=== PATIENT | female | born 1980 | race Caucasian/White ===

== ENCOUNTER 2020-04-09 02:35 | Inpatient (IN) | payer BC ==
[~2020-04-09 02:35] MED LIST: ELECTROLYTE-148 SOLN 500 ML IV ONE
[2020-04-09] MEDS ORDERED: ELECTROLYTE-148 SOLN 500 ML IV ONE (03:35)
[2020-04-09] MEDS ORDERED: BUTORPHANOL TARTRATE 2 MG/ML VIAL ONE (03:45)
[2020-04-09] MEDS ORDERED: PROMETHAZINE HCL 25 MG/1 ML VIAL ONE (03:45)
[2020-04-09 03:48] LABS: BASO % 0.7 % (0-2.0); EOS % 0.4 % (0-4.5); HEMATOCRIT 37.1 % (32.4-45.2); HEMOGLOBIN 12.5 GM/dL (10.7-15.3); LYMPH % 14.6 % (8-40); MCH 32.2 pg (25.7-33.7); MCHC 33.7 g/dl (32.0-36.0); MEAN CELL VOLUME 95.5 fl (80-96); MEAN PLT VOLUME 8.5 fl (7.5-11.1); MONO % 8.3 % (3.8-10.2); PLATELET COUNT 176 K/MM3 (134-434); RBC 3.89 M/mm3 (3.60-5.2); RDW 14.8 % (11.6-15.6); WHITE BLOOD COUNT 10.3 K/mm3 (4.0-10.0)
[2020-04-09] MEDS ORDERED: BUTORPHANOL TARTRATE 1 MG/ML VIAL IVPB ONE (03:50)
[2020-04-09] MEDS ORDERED: PROMETHAZINE HCL 25 MG/1 ML VIAL IVPB ONE (03:50)
[2020-04-09 03:57] LABS: INR 0.89 (0.83-1.09); PROTHROMBIN TIME (PATIENT) 10.5 SEC (9.7-13.0)
[2020-04-09 04:00] LABS: ACTIVATED PTT 28.3 SECONDS (25.2-36.5)
[2020-04-09 04:09] VITALS: BMI 31.6
[2020-04-09 04:28] LABS: BLOOD UREA NITROGEN 10.9 mg/dL (7-18); CALCIUM 8.9 mg/dL (8.5-10.1); CREATININE 0.7 mg/dL (0.55-1.3); POTASSIUM 3.9 mmol/L (3.5-5.1)
[2020-04-09] MEDS ORDERED: ELECTROLYTE-148 SOLN 1,000 ML IV SCH (05:35)
[2020-04-09] MEDS: CEPHALEXIN MONOHYDRATE 500 MG CAPSULE (UD) PO SCH ×4 (06:00→23:15)
[2020-04-09] MEDS ORDERED: PCA PUMP NR ONE ×3 (06:14→14:57)
[2020-04-09] MEDS ORDERED: FENTANYL/BUPIVACAINE/NS/PF - PCEA - 50 ML DISP.SYRIN EP ONE ×3 (06:14→14:57)
[2020-04-09] MEDS ORDERED: BUPIVACAINE HCL/PF 0.25% (2.5MG/ML) 10 ML VIAL ONE ×2 (06:22→13:33)
[2020-04-09] MEDS ORDERED: NALOXONE HCL 0.4 MG/ML VIAL IVPUSH PRN (06:43)
[2020-04-09] MEDS ORDERED: FENTANYL/BUPIVACAINE/NS/PF - PCEA - 50 ML DISP.SYRIN EP SCH ×2 (06:45→07:11)
--- NOTE | 2020-04-09 07:42 | HP ---
Past Medical History - Primary Care Physician PCP:: Mya Laura - Admission Chief Complaint: 40yo P1 @ 40wks with painful contructions and bloody discharge, no LOF, +FM History of Present Illness: 1. AMA - normal Materni 21 - 46XY 2. Fibroids 3. GBS neg - Past Medical History Pulmonary: Yes: Asthma ...: 3 ...Para: 1 ...Term: 1 ...: 0 ...Spon : 0 ...Induced : 0 ...Living Children: 1 ( 2012 7.9lb) ...Multiple Gestation: 0 ...LMP: 06/23/19 ...EDC by Dates: 03/29/20 ...EDC by Sono: 04/09/20 - Past Surgical History Past Surgical History: Yes: None Hx Myomectomy: No Hx Transabdominal Cerclage: No - Smoking History Smoking history: Never smoked Have you smoked in the past 12 months: No Aproximately how many cigarettes per day: 0 - Alcohol/Substance Use Hx Alcohol Use: No History of Substance Use: reports: None - Social History History of Recent Travel: No Home Medications - Allergies Allergies/Adverse Reactions: Allergies Allergy/AdvReac Type Severity Reaction Status Date / Time acetaminophen Allergy Severe Difficulty Verified 04/09/20 03:14 Breathing tramadol Allergy Intermediate Nausea Verified 04/09/20 03:15 seafood Allergy Severe Swelling Uncoded 04/09/20 03:15 - Home Medications Home Medications: Ambulatory Orders Pnv No.95/Ferrous Fum/Folic AC [ Formula] 1 each PO DAILY 04/04/20 Cephalexin Monohydrate [Keflex -] 500 mg PO Q6H 5 Days #20 capsule 04/05/20 Review of Systems - Review of Systems Constitutional: reports: No Symptoms Eyes: reports: No Symptoms HENT: reports: No Symptoms Neck: reports: No Symptoms Cardiovascular: reports: No Symptoms Respiratory: reports: No Symptoms Gastrointestinal: reports: No Symptoms Genitourinary: reports: Other (labor contructions) Breasts: reports: No Symptoms Reported Musculoskeletal: reports: No Symptoms Integumentary: reports: No Symptoms Neurological: reports: No Symptoms Endocrine: reports: No Symptoms Hematology/Lymphatic: reports: No Symptoms Psychiatric: reports: No Symptoms Physical Exam - Maternity Vital Signs: Vital Signs Temperature 97.9 F 04/09/20 03:00 Pulse Rate 73 04/09/20 07:20 Respiratory Rate 20 04/09/20 07:20 Blood Pressure 109/70 04/09/20 07:20 O2 Sat by Pulse Oximetry (%) 100 04/09/20 07:20 Constitutional: Yes: Well Nourished, No Distress, Calm Eyes: Yes: WNL, Conjunctiva Clear HENT: Yes: WNL, Atraumatic Neck: Yes: WNL, Supple Cardiovascular: Yes: WNL, Regular Rate and Rhythm Lungs: Clear to auscultation Breast(s): Yes: WNL - Abdominal Exam/OB Fundal Height: 40 Number of Fetuses: Single Presentation: Vertex Contractions: Yes Regularity: Regular Intensity: Moderate Monitor Mode: External Heart Rate (range): 150 Heart Rate Location: Midline Category: I Accelerations: Uniform Decelerations: None - Vaginal Exam/OB Vaginal Bleeding: Bloody Show Speculum Exam: No Dilatation (cm): 4 Effacement (%): 80 Amniotic Membrane Status: Intact Presentation: Vertex/Position Station: -3 - Physical Exam Musculoskeletal: Yes: WNL Extremities: Yes: WNL Edema: No Integumentary: Yes: WNL ...Motor Strength: WNL Psychiatric: Yes: WNL, Alert, Oriented - Labs Lab Results: CBC, BMP 04/09/20 03:30 04/09/20 03:30 Assessment/Plan 40yo P1 @ 40 wks in labor Admit to L&D MF Status reassuring NPO, IVF, Labs Pain managment as needed
--- NOTE | 2020-04-09 09:01 | PN ---
Ante-Partal Exam - Subjective Subjective: No complaints. Pt is comfortable with epidural. Vital Signs: Vital Signs Temperature 98.3 F 04/09/20 08:00 Pulse Rate 75 04/09/20 08:45 Respiratory Rate 20 04/09/20 08:45 Blood Pressure 102/71 04/09/20 08:45 O2 Sat by Pulse Oximetry (%) 100 04/09/20 08:45 Bleeding: No Headache: No Visual changes: No Right upper quadrant pain: No Pain (scale 1-10): 0 - Contractions Contractions: Yes Regularity: Irregular Intensity: Unaware Monitor Mode: External - Exam during Labor Heart Rate: 120 Variability: Moderate Heart Rate Location: Midline Category: I Monitor Accelerations: Present Monitor Decelerations: None Exam: Vaginal Dilatation (cm): 4 Effacement (%): 80 Amniotic Membrane Status: Leaking Amniotic Fluid: Clear Presentation: Vertex Station: -1 Remarks: Gynecoid pelvimetry - Intrapartum Hemorrhage Risk Medium Risk Factors: None High Risk Factors: None Risk Score: 0 Risk Level: Low Risk - Assessment/Plan Assessment/Plan: 40yo in spontaneous labor at EGA 40wks. Fetus with Category I tracing. Labor in early active phase. Plan to monitor contractions. Anticipate .
[2020-04-09] MEDS ORDERED: OXYTOCIN 20 UNITS in 0.9% NS 40 UNIT/2,000 ML INFUS.BAG IV ONE (15:13)
[2020-04-09] MEDS ORDERED: LIDOCAINE HCL 1% PRESERVATIVE FREE - 30ML VIAL ONE (15:13)
[2020-04-09 16:28] LABS: POC NITRAZINE POS
--- NOTE | 2020-04-09 19:15 | PN ---
Delivery - Delivery Vaginal Delivery: No Problems, Spontaneous Type of Anesthesia: Epidural Episiotomy/Laceration: 2nd degree EBL (cc): 300 Delivery, Single - Stages of Labor Date 1st Stage Initiatied: 04/08/20 Time 1st Stage Initiated: 23:00 Date 2nd Stage Initiated: 04/09/20 Time 2nd Stage Initiated: 15:50 Date of Delivery: 04/09/20 Time of Delivery: 16:23 Date Placenta Delivered: 04/09/20 Time Placenta Delivered: 16:27 Placenta: Yes: Spontaneous, Normal Configuration - Condition of Infant Seo Strategist/Gas System Operator Present: No Infant Gender: Male Weight: 2.665 kg Position: Left, OA Total Hours ROM (Hrs/Mins): 3hrs 43min - 1 Minute Total Score: 9 5 Minutes Total Score: 9 - [place] Feeding Plan Initial Plan: Exclusive throughout hospitalization Benefits of Exclusively reinforced: Yes Remarks - Remarks Remarks: w/o complications.
[2020-04-09] MEDS ORDERED: METHYLERGONOVINE MALEATE 0.2 MG/1 ML AMP IM PRN (21:02)
[2020-04-09] MEDS ORDERED: BENZOCAINE 28 GM HEMORRHOIDAL OINTMENT TP PRN (21:02)
[2020-04-09] MEDS ORDERED: BISACODYL 10 MG SUPP.RECT RC PRN (21:02)
[2020-04-09] MEDS ORDERED: BENZOCAINE 20% 57 GM BOTTLE TP PRN (21:02)
[2020-04-09] MEDS ORDERED: WITCH HAZEL 50% (TUCKS) 40 PAD/JAR PAD TP PRN (21:02)
[2020-04-09] MEDS ORDERED: OXYTOCIN 20 UNITS in 0.9% NS 20 UNIT/1,000 ML INFUS.BAG IV SCH (21:15)
[2020-04-10] MEDS: CEPHALEXIN MONOHYDRATE 500 MG CAPSULE (UD) PO SCH ×3 (06:20→18:13)
[2020-04-10 08:12] LABS: BASO % 0.3 % (0-2.0); EOS % 0.8 % (0-4.5); HEMATOCRIT 33.6 % (32.4-45.2); HEMOGLOBIN 10.9 GM/dL (10.7-15.3); LYMPH % 14.1 % (8-40); MCHC 32.4 g/dl (32.0-36.0); MEAN CELL VOLUME 95.5 fl (80-96); MEAN PLT VOLUME 8.3 fl (7.5-11.1); MONO % 6.6 % (3.8-10.2); NEUT % 78.2 % (42.8-82.8); PLATELET COUNT 161 K/MM3 (134-434); RBC 3.52 M/mm3 (3.60-5.2); RDW 15.6 % (11.6-15.6); WHITE BLOOD COUNT 12.5 K/mm3 (4.0-10.0)
[2020-04-10] MEDS: IBUPROFEN 600 MG TABLET (FP) PO PRN ×2 (08:54→13:10)
[2020-04-10] MEDS: PRENATAL VITAMINS W/ FOLIC ACID TABLET (FP) PO SCH (09:29)
--- NOTE | 2020-04-10 18:00 | PN ---
Post Progress Note - Subjective Subjective: Patient without acute complaints. Reports tolerating oral intake without nausea or vomiting. Ambulating without dizziness. Denies fevers or chills. Pain well controlled with oral pain medication. Pumping/breast feeding without issue. Passing flatus and BM. Post Day: 1 Type of Delivery: Vital Signs: Vital Signs Temperature 97.4 F L 04/10/20 14:00 Pulse Rate 74 04/10/20 14:00 Respiratory Rate 18 04/10/20 14:00 Blood Pressure 126/70 04/10/20 14:00 O2 Sat by Pulse Oximetry (%) 98 04/10/20 14:00 Breast Exam: Yes: Soft Uterus: Yes: Fundus Firm, Fundus below umbilicus, Non-tender Abdomen/GI: Yes: Abdomen soft, Tolerating PO Lochia: Yes: Rubra Lochia, amount: Small Extremities: Yes: Calves non-tender Perineum: Yes: Intact Activity: Ambulating - Labs Labs: CBC WBC 12.5 K/mm3 (4.0-10.0) H 04/10/20 07:28 RBC 3.52 M/mm3 (3.60-5.2) L 04/10/20 07:28 Hgb 10.9 GM/dL (10.7-15.3) 04/10/20 07:28 Hct 33.6 % (32.4-45.2) 04/10/20 07:28 MCV 95.5 fl (80-96) 04/10/20 07:28 MCH 31.0 pg (25.7-33.7) 04/10/20 07:28 MCHC 32.4 g/dl (32.0-36.0) 04/10/20 07:28 RDW 15.6 % (11.6-15.6) 04/10/20 07:28 Plt Count 161 K/MM3 (134-434) 04/10/20 07:28 MPV 8.3 fl (7.5-11.1) 04/10/20 07:28 Absolute Neuts (auto) 9.8 K/mm3 (1.5-8.0) H 04/10/20 07:28 Neutrophils % 78.2 % (42.8-82.8) 04/10/20 07:28 Lymphocytes % 14.1 % (8-40) 04/10/20 07:28 Monocytes % 6.6 % (3.8-10.2) 04/10/20 07:28 Eosinophils % 0.8 % (0-4.5) D 04/10/20 07:28 Basophils % 0.3 % (0-2.0) 04/10/20 07:28 Nucleated RBC % 0 % (0-0) 04/10/20 07:28 Assessment/Plan 40yo P2 s/p , doing well stable, afebrile. Asymptomatic for anemia. care instructions reviewed. Continue routine care. Ambulation encouraged Discharge instruction reviewed.
--- NOTE | 2020-04-10 18:08 | DS ---
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 Vital Signs: Vital Signs Temperature 97.4 F L 04/10/20 14:00 Pulse Rate 74 04/10/20 14:00 Respiratory Rate 18 04/10/20 14:00 Blood Pressure 126/70 04/10/20 14:00 O2 Sat by Pulse Oximetry (%) 98 04/10/20 14:00 Constitutional: Yes: Well Nourished, No Distress, Calm Eyes: Yes: WNL, Conjunctiva Clear HENT: Yes: WNL, Atraumatic, Normocephalic Neck: Yes: WNL, Supple, Trachea Midline Cardiovascular: Yes: WNL, Regular Rate and Rhythm Respiratory: Yes: WNL, Regular, CTA Bilaterally Gastrointestinal: Yes: WNL, Normal Bowel Sounds, Soft ...Rectal Exam: Yes: Deferred Renal/: Yes: WNL ....Post : Yes: Uterus firm, Uterus non-tender, Slight lochia rubra Breast(s): Yes: WNL Musculoskeletal: Yes: WNL Extremities: Yes: WNL Edema: No Integumentary: Yes: WNL Neurological: Yes: WNL, Alert, Oriented ...Motor Strength: WNL Psychiatric: Yes: WNL, Alert, Oriented Labs: CBC, BMP 04/10/20 07:28 04/09/20 03:30 Delivery - Delivery Vaginal Delivery: No Problems, Spontaneous Type of Anesthesia: Epidural Episiotomy/Laceration: 2nd degree EBL (cc): 300 Delivery, Single - Stages of Labor Date 1st Stage Initiatied: 04/08/20 Time 1st Stage Initiated: 23:00 Date 2nd Stage Initiated: 04/09/20 Time 2nd Stage Initiated: 15:50 Date of Delivery: 04/09/20 Time of Delivery: 16:23 Time Placenta Delivered: 16:27 Placenta: Yes: Spontaneous, Normal Configuration - Condition of Bread Dough Mixer/Lining Caser Present: No Gender: Male Weight: 2.665 kg Position: Left, OA Total Hours ROM (Hrs/Mins): 3hrs 43min - 1 Minute Total Score: 9 5 Minutes Total Score: 9 - [place] Feeding Plan Initial Plan: Exclusive throughout hospitalization Benefits of Exclusively reinforced: Yes Remarks - Remarks Remarks: w/o complications. Discharge Summary Problems reviewed: Yes Reason For Visit: ADMIT LABOR Spontaneous labor at 40 wks Procedures: Principal: ROXY Hospital Course: Normal recovery Plan of Treatment: Normal recovery, breast feeding Goals: Normal recovery Condition: Good - Instructions Diet, Activity, Other Instructions: Physical activity Resume your normal everyday activity as tolerated no heavy lifting or exercise until seen by your surgeon. You may walk unlimited hal of and climb stairs. You may resume driving the car when you feel safe and comfortable behind the wheel. No sexual activity as instructed. Wound care If you have a bandage, leave it on, and keep dry for 48-72 hours. After that time discard the outer bandage. If they are tapes on the skin under the out of bandage leave them in place. They will peel off in the next 7 to 10 days. Do Not Peel them off. You may shower the day after surgery. If there are tapes present on the skin, you may shower over them. Diet There are no dietary restrictions. Eat healthy, high-fiber foods. Drink 6 to 8 glasses of liquid each day. This will assist in keeping your bowels are regular. Pain management You may take Tylenol or acetaminophen or Ibuprofen (for example, Motrin, Advil etc.) from my pain prescription medication is ordered should be taken as prescribed for moderate to severe pain. Call MD for any of the following: Severe pain not relieved by medication Fever of 101 or higher Excessive bleeding or drainage on dressing Inability to urinate Referrals: Addison Light MD [Staff Physician] - 1 Month Disposition: HOME - Home Medications Comprehensive Discharge Medication List: Ambulatory Orders Pnv No.95/Ferrous Fum/Folic AC [ Formula] 1 each PO DAILY 04/04/20 Cephalexin Monohydrate [Keflex -] 500 mg PO Q6H 5 Days #20 capsule 04/05/20 Prescription Drug Monitoring Program (I-STOP) results: I-STOP not reviewed
[2020-04-10] MEDS ORDERED: SENNOSIDES/DOCUSATE COMBO (SENNA PLUS) TABLET (UD) PO PRN (22:00)
[2020-04-11] MEDS: CEPHALEXIN MONOHYDRATE 500 MG CAPSULE (UD) PO SCH ×3 (00:18→12:01)
--- NOTE | 2020-04-11 08:55 | PN ---
Post Progress Note - Subjective Subjective: Patient without acute complaints. Reports tolerating oral intake without nausea or vomiting. Ambulating without dizziness. Denies fevers or chills. Pain well controlled with oral pain medication. with supplementation Passing flatus. Post Day: 2 Type of Delivery: Vital Signs: Vital Signs Temperature 98.5 F 04/10/20 21:00 Pulse Rate 74 04/10/20 21:00 Respiratory Rate 20 04/10/20 21:00 Blood Pressure 125/80 04/10/20 21:00 O2 Sat by Pulse Oximetry (%) 98 04/10/20 14:00 Breast Exam: Yes: Soft Uterus: Yes: Fundus Firm, Fundus below umbilicus Abdomen/GI: Yes: Abdomen soft, Passing flatus, Tolerating PO. No: Abdominal Distention, Tender Lochia: Yes: Rubra Lochia, amount: Small Extremities: Yes: Calves non-tender Activity: Ambulating - Labs Labs: CBC WBC 12.5 K/mm3 (4.0-10.0) H 04/10/20 07:28 RBC 3.52 M/mm3 (3.60-5.2) L 04/10/20 07:28 Hgb 10.9 GM/dL (10.7-15.3) 04/10/20 07:28 Hct 33.6 % (32.4-45.2) 04/10/20 07:28 MCV 95.5 fl (80-96) 04/10/20 07:28 MCH 31.0 pg (25.7-33.7) 04/10/20 07:28 MCHC 32.4 g/dl (32.0-36.0) 04/10/20 07:28 RDW 15.6 % (11.6-15.6) 04/10/20 07:28 Plt Count 161 K/MM3 (134-434) 04/10/20 07:28 MPV 8.3 fl (7.5-11.1) 04/10/20 07:28 Absolute Neuts (auto) 9.8 K/mm3 (1.5-8.0) H 04/10/20 07:28 Neutrophils % 78.2 % (42.8-82.8) 04/10/20 07:28 Lymphocytes % 14.1 % (8-40) 04/10/20 07:28 Monocytes % 6.6 % (3.8-10.2) 04/10/20 07:28 Eosinophils % 0.8 % (0-4.5) D 04/10/20 07:28 Basophils % 0.3 % (0-2.0) 04/10/20 07:28 Nucleated RBC % 0 % (0-0) 04/10/20 07:28 Assessment/Plan 40 yo PPD # 2 s/p , afebrile, vital signs stable, doing well 1. Patient stable for discharge home today. 2. Patient encouraged to contact MD for: - Severe pain not controlled by oral pain medication - Fevers or chills - Nausea or vomiting, intolerance of oral intake 3. Patient to follow up in office in 4-6 weeks for visit
[2020-04-11] MEDS: PRENATAL VITAMINS W/ FOLIC ACID TABLET (FP) PO SCH (09:34)
[2020-04-11 12:18] VITALS: BP 123/76; PULSE 73; TEMP 97.4
== END 2020-04-11 13:15 | disposition home or self-care (01) | DRG 807 ==
LOC: JLDR 02:35 → J3W 18:00
PROVIDERS: ADMIT Obstetrics & Gynecology; ATTEND Obstetrics & Gynecology
PROC: 0KQM0ZZ Repair Perineum Muscle, Open Approach (ICD-10-PCS; principal; 2020-04-09)
PROC: 10E0XZZ Delivery of Products of Conception, External Approach (ICD-10-PCS; 2020-04-09)
DX: O48.0 Post-term pregnancy (principal); Z37.0 Single live birth; O70.9 Perineal laceration during delivery, unspecified; Z3A.40 40 weeks gestation of pregnancy
CPT/HCPCS: 36415; 59409; 80048; 83986-QW; 85025; 85610; 85730; 86780; 86850; 86900; 86901; 87389